=== PATIENT | female | born 1985 ===

== ENCOUNTER 2017-03-15 02:00 | Emergency (ER) | payer SELFPAY ==
[2017-03-15 02:09] VITALS: BP 127/90; PULSE 62; RESP 17; TEMP 98.2; O2SAT 100
--- NOTE | 2017-03-15 02:21 | ED PDOC ---
Arrival/HPI - General Chief Complaint: Abdominal Pain Time Seen by Provider: 03/15/17 02:04 Historian: Patient, Spouse - History of Present Illness Narrative History of Present Illness (Text): 03/15/17 02:19 Floridalma Leroy is a 31 year old female, with no significant past medical history, who presents to the emergency department accompanied by spouse complaining of abdominal pain. 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 Patient states she took Pepto-Bismol and diarrhea resolved but notes she woke up with worsening RUQ pain and nausea prior to arrival. Patient denies any fevers, chills, chest pain, shortness of breath, back pain, neck pain, headache, dizziness, or any other complaint. Time/Duration: < week (yesterday) Symptom Onset: Gradual Symptom Course: Unchanged Activities at Onset: Light Context: Home Past Medical History - Provider Review Nursing Documentation Reviewed: Yes - Psychiatric Hx Substance Use: No Family/Social History - Physician Review Nursing Documentation Reviewed: Yes Family/Social History: Unknown Family HX Smoking Status: Never Smoked Hx Alcohol Use: No Hx Substance Use: No Allergies/Home Meds Allergies/Adverse Reactions: Allergies No Known Allergies Allergy (Verified 03/15/17 02:10) Home Medications: Home Meds Medication Instructions Recorded Confirmed No Known Home Med 03/15/17 03/15/17 Review of Systems - Physician Review All systems were reviewed & negative as marked: Yes - Review of Systems Constitutional: Normal. absent: Fevers Eyes: Normal ENT: Normal Respiratory: Normal. absent: SOB, Cough Cardiovascular: Normal. absent: Chest Pain Gastrointestinal: Abdominal Pain, Diarrhea, Nausea Genitourinary Female: Normal. absent: Dysuria, Frequency, Hematuria, Urine Output Changes Musculoskeletal: Normal. absent: Back Pain, Neck Pain Skin: Normal. absent: Rash Neurological: Normal. absent: Headache, Dizziness Endocrine: Normal Hemo/Lymphatic: Normal Psychiatric: Normal Physical Exam Vital Signs Reviewed: Yes Vital Signs Temp Pulse Resp BP Pulse Ox 03/15/17 02:08 98.2 F 62 17 127/90 100 Temperature: Afebrile Blood Pressure: Normal Pulse: Regular Respiratory Rate: Normal Appearance: Positive for: Well-Appearing, Non-Toxic, Comfortable Pain Distress: None Mental Status: Positive for: Alert and Oriented X 3 - Systems Exam Head: Present: Atraumatic, Normocephalic Pupils: Present: PERRL Extroacular Muscles: Present: EOMI Conjunctiva: Present: Normal Mouth: Present: Moist Mucous Membranes Neck: Present: Normal Range of Motion Respiratory/Chest: Present: Clear to Auscultation, Good Air Exchange. No: Respiratory Distress, Accessory Muscle Use Cardiovascular: Present: Regular Rate and Rhythm, Normal S1, S2. No: Murmurs Abdomen: Present: Tenderness (RUQ tenderness), Normal Bowel Sounds. No: Distention, Peritoneal Signs Back: Present: Normal Inspection Upper Extremity: Present: Normal Inspection. No: Cyanosis, Edema Lower Extremity: Present: Normal Inspection. No: Edema Neurological: Present: GCS=15, CN II-XII Intact, Speech Normal Skin: Present: Warm, Dry, Normal Color. No: Rashes Psychiatric: Present: Alert, Oriented x 3, Normal Insight, Normal Concentration Medical Decision Making ED Course and Treatment: 03/15/17 02:20 Impression: 31 year old female complaining of RUQ/epigastric pain and nausea. Plan: -- CT Abdomen and Pelvis -- Labs, lipase -- UA -- IV fluids -- Zofran -- Toradol -- Reassess and disposition Progress Notes: 03/15/17 05:31 Reviewed radiology, CT Abdomen and Pelvis shows: LOWER THORAX: No infiltrate seen in the lung bases. ABDOMEN: LIVER: No acute abnormality of the liver identified. GALLBLADDER AND BILE DUCTS: Gallstones. Multiple stones are seen in the gallbladder neck. The gallbladder is mildly dilated. No evidence of significant pericholecystic fluid or inflammation. No evidence of significant biliary ductal dilatation. PANCREAS: No CT evidence of acute pancreatitis. SPLEEN: No acute abnormality of the spleen identified. ADRENALS: No acute abnormality of the adrenal glands identified. KIDNEYS AND URETERS: No acute abnormality of the kidneys identified. No renal stones, hydronephrosis, or hydroureter seen. STOMACH AND BOWEL: No acute abnormality of the stomach, small bowel or colon identified. No evidence of bowel obstruction. APPENDIX: Normal appendix is probably seen, image 42/series 601. No significant pericecal inflammatory changes are noted to suggest appendicitis. Recommend clinical correlation. PELVIS: BLADDER: No acute abnormality of the bladder identified. REPRODUCTIVE: No acute abnormality of the reproductive organs is seen. ABDOMEN and PELVIS: INTRAPERITONEAL SPACE: Tiny amount of fluid in the right anterior pelvis, most likely physiologic in nature. No evidence of free air. BONES/JOINTS: No acute fractures or other acute bony abnormality noted. SOFT TISSUES: No acute abnormality of the visualized soft tissues is seen. VASCULATURE: No evidence of abdominal aortic aneurysm. No evidence of periaortic hemorrhage. LYMPH NODES: No evidence of diffuse lymphadenopathy. IMPRESSION: - Cholelithiasis. There are multiple stones in the gallbladder neck and there is mild gallbladder dilatation. No CT evidence of acute cholecystitis. Recommend clinical correlation, and followup right upper quadrant ultrasound as indicated. - See above for remaining findings. 03/15/17 05:58 On re-evaluation, patient feels better and is in no acute distress. I have discussed the results and plan with the patient, who expresses understanding. Patient in agreement with plan to be discharged home. Patient is stable for discharge. Patient was instructed to follow up with physician or return if symptoms worsen or new concerning symptoms arise. - Lab Interpretations Microbiology Results: Microbiology Results 03/15/17 08:07 Urine,Clean Catch Urine Culture - Final No Growth (<1,000 CFU/ML) Lab Results: 03/15/17 02:30 03/15/17 02:30 Lab Results 03/15/17 02:30: Sodium 138, Potassium 4.0, Chloride 104, Carbon Dioxide 25, Anion Gap 13, BUN 6 L, Creatinine 0.9, Est GFR ( Amer) > 60, Est GFR (Non -Af Amer) > 60, Random Glucose 85, Calcium 9.7, Total Bilirubin 0.3, AST 26, ALT 40, Alkaline Phosphatase 40, Total Protein 7.2, Albumin 4.2, Globulin 3.1, Albumin/Globulin Ratio 1.4, Lipase 159 03/15/17 02:30: WBC 8.3, RBC 4.11, Hgb 11.9 L, Hct 36.7, MCV 89.3, MCH 29.0, MCHC 32.4, RDW 13.1, Plt Count 346, MPV 9.9, Gran % 48.8 L, Lymph % (Auto) 36.8 H, [place] % (Auto) 7.0 H, Eos % (Auto) 6.2 H, Baso % (Auto) 1.2, Gran # 4.03, Lymph # (Auto) 3.0, [place] # (Auto) 0.6, Eos # (Auto) 0.5, Baso # (Auto) 0.10 03/15/17 02:18: Urine Color Yellow, Urine Appearance Clear, Urine pH 7.0, Ur Specific [place] 1.010, Urine Protein Negative, Urine Glucose (UA) Negative, Urine Ketones Negative, Urine Blood Negative, Urine Nitrate Negative, Urine Bilirubin Negative, Urine Urobilinogen 0.2, Ur Leukocyte Esterase Small H, Urine RBC 0 - 2, Urine WBC 1 - 3, Ur Epithelial Cells 1 - 3 I have reviewed the lab results: Yes - RAD Interpretation Radiology Orders: 03/15/17 03:11 ABD & PELVIS W/O PO OR IV CONT [CT] Stat Special Warfare Operator: Radiologist - Medication Orders Current Medication Orders: Discontinued Medications Sodium Chloride (Sodium Chloride 0.9%) 1,000 mls @ 80 mls/hr IV .[id number] LUISA Last Admin: 03/15/17 02:37 Dose: 80 mls/hr eMAR Start Stop Document 03/15/17 02:37 AD (Rec: 03/15/17 02:38 AD [id number]) Intravenous Solution Start Date 03/15/17 Start Time 02:38 Ketorolac Tromethamine (Toradol) 30 mg IVP ONCE ONE Stop: 03/15/17 02:22 Last Admin: 03/15/17 02:37 Dose: 30 mg MAR Pain Assessment Document 03/15/17 02:37 AD (Rec: 03/15/17 02:37 AD [id number]) Pain Reassessment Is this a pain reassessment? No Presence of Pain Presence of Pain Yes Pain Scale Used Pain Scale Used Numeric Location Upper or Lower Upper Pain Location Body Site Abdomen Description Intensity of Pain at present 10 Pain Behavior Facial Grimacing IVP Administration Document 03/15/17 02:37 AD (Rec: 03/15/17 02:37 AD [id number]) Charges for Administration # of IVP Administrations 1 Ondansetron HCl (Zofran Inj) 4 mg IVP STAT STA Stop: 03/15/17 02:22 Last Admin: 03/15/17 02:37 Dose: 4 mg IVP Administration Document 03/15/17 02:37 AD (Rec: 03/15/17 02:37 AD [id number]) Charges for Administration # of IVP Administrations 1 - Scribe Statement The provider has reviewed the documentation as recorded by the Christinaibdolly Cortez Provider Scribe Attestation: All medical record entries made by the Scribe were at my direction and personally dictated by me. I have reviewed the chart and agree that the record accurately reflects my personal performance of the history, physical exam, medical decision making, and the department course for this patient. I have also personally directed, reviewed, and agree with the discharge instructions and disposition. Disposition/Present on Arrival - Present on Arrival Any Indicators Present on Arrival: No History of DVT/PE: No History of Uncontrolled Diabetes: No Urinary Catheter: No History of Decub. Ulcer: No History Surgical Site Infection Following: None - Disposition Have Diagnosis and Disposition been Completed?: Yes Diagnosis: Cholelithiases Disposition: HOME/ ROUTINE Disposition Time: 05:58 Condition: GOOD Discharge Instructions (ExitCare): Gallstones (ED) Referrals: [facility] [place] [Outside] - Follow up with primary Forms: [employer] (Yoruba)
[2017-03-15] MEDS ORDERED: Sodium Chloride 0.9% 1,000 ML IV SCH (02:30)
[2017-03-15 02:45] LABS: BASO # 0.1 K/mm3 (0.0-2.0); BASO % 1.2 % (0.0-3.0); EOS # 0.5 (0.0-0.7); EOS % 6.2 % (1.5-5.0); GRAN # 4.03 (1.4-6.5); GRAN % 48.8 % (50.0-68.0); HEMOGLOBIN 11.9 g/dL (12.0-16.0); LYMPH % 36.8 % (22.0-35.0); MEAN CELL VOLUME 89.3 fl (80.0-105.0); MEAN CORPUSCULAR HGB CONC 32.4 g/dl (31.0-37.0); MEAN PLATELET VOLUME 9.9 fl (7.0-11.0); MONO # 0.6 (0.1-0.6); RBC 4.11 10^6/uL (3.5-6.1); RED CELL DISTRIBUTION WIDTH 13.1 % (11.5-14.5); WHITE BLOOD COUNT 8.3 10^3/ul (4.5-11.0)
[2017-03-15 02:59] LABS: URINE BILIRUBIN NEGATIVE (NEGATIVE); URINE BLOOD NEGATIVE (NEGATIVE); URINE GLUCOSE (UA) NEGATIVE (NEGATIVE); URINE LEUKOCYTE ESTERASE SMALL Leu/uL (NEGATIVE); URINE NITRATE NEGATIVE (NEGATIVE); URINE PROTEIN NEGATIVE mg/dL (<30 mg/dL); URINE UROBILINOGEN 0.2 E.U./dL (<1 E.U./dL)
[2017-03-15 03:07] LABS: URINE APPEARANCE CLEAR (CLEAR); URINE COLOR YELLOW (YELLOW)
[2017-03-15 03:12] LABS: BLOOD UREA NITROGEN 6 mg/dL (7-21); CALCIUM 9.7 mg/dL (8.4-10.5); GFR AFRICAN-AMERICAN > 60; GFR NON-AFRICAN AMERICAN > 60
[2017-03-15 03:13] LABS: ALB/GLOB RATIO 1.4 (1.1-1.8); ALBUMIN 4.2 g/dL (3.0-4.8); ALT/SGPT 40 U/L (7-56); AST/SGOT 26 U/L (14-36); LIPASE 159 U/L (23-300)
[2017-03-15 03:18] LABS: URINE RBC 0 - 2 /hpf (0-2)
--- NOTE | 2017-03-15 05:30 | CT ---
EXAM: CT Abdomen and Pelvis Without Intravenous Contrast EXAM DATE/TIME: 03/15/2017 3:11 AM CLINICAL HISTORY: 31 years old, female; Pain; Abdominal pain; Flank; Right; Additional info: Rt flank pain TECHNIQUE: Axial computed tomography images of the abdomen and pelvis without intravenous contrast. All CT scans at this facility use one or more dose reduction techniques, viz.: automated exposure control; ma/kV adjustment per patient size (including targeted exams where dose is matched to indication; i.e. head); or iterative reconstruction technique. Coronal and sagittal reformatted images were created and reviewed. COMPARISON: No relevant prior studies available. FINDINGS: LOWER THORAX: No infiltrate seen in the lung bases. ABDOMEN: LIVER: No acute abnormality of the liver identified. GALLBLADDER AND BILE DUCTS: Gallstones. Multiple stones are seen in the gallbladder neck. The gallbladder is mildly dilated. No evidence of significant pericholecystic fluid or inflammation. No evidence of significant biliary ductal dilatation. PANCREAS: No CT evidence of acute pancreatitis. SPLEEN: No acute abnormality of the spleen identified. ADRENALS: No acute abnormality of the adrenal glands identified. KIDNEYS AND URETERS: No acute abnormality of the kidneys identified. No renal stones, hydronephrosis, or hydroureter seen. STOMACH AND BOWEL: No acute abnormality of the stomach, small bowel or colon identified. No evidence of bowel obstruction. APPENDIX: Normal appendix is probably seen, image 42/series 601. No significant pericecal inflammatory changes are noted to suggest appendicitis. Recommend clinical correlation. PELVIS: BLADDER: No acute abnormality of the bladder identified. REPRODUCTIVE: No acute abnormality of the reproductive organs is seen. ABDOMEN and PELVIS: INTRAPERITONEAL SPACE: Tiny amount of fluid in the right anterior pelvis, most likely physiologic in nature. No evidence of free air. BONES/JOINTS: No acute fractures or other acute bony abnormality noted. SOFT TISSUES: No acute abnormality of the visualized soft tissues is seen. VASCULATURE: No evidence of abdominal aortic aneurysm. No evidence of periaortic hemorrhage. LYMPH NODES: No evidence of diffuse lymphadenopathy. IMPRESSION: - Cholelithiasis. There are multiple stones in the gallbladder neck and there is mild gallbladder dilatation. No CT evidence of acute cholecystitis. Recommend clinical correlation, and followup right upper quadrant ultrasound as indicated. - See above for remaining findings.
== END 2017-03-15 06:01 | disposition home or self-care (01) ==
LOC: ED 02:00
DX: K80.20 Calculus of gallbladder without cholecystitis without obstruction (principal)
CPT/HCPCS: 74176; 80053; 81001; 83690; 85025; 87086; 96374; 96375; 99283; J1885; J2405; J7040

== ENCOUNTER 2017-09-04 09:32 | Emergency (ER) | payer OTHER ==
[2017-09-04 09:57] VITALS: TEMP 99.1; O2SAT 100
[2017-09-04 10:09] LABS: PH,URINE 6.5 (4.7-8.0); URINE BILIRUBIN NEGATIVE (NEGATIVE); URINE BLOOD NEGATIVE (NEGATIVE); URINE GLUCOSE (UA) NEGATIVE (NEGATIVE); URINE LEUKOCYTE ESTERASE MODERATE Leu/uL (NEGATIVE); URINE PROTEIN NEGATIVE mg/dL (<30 mg/dL); URINE UROBILINOGEN 0.2 E.U./dL (<1 E.U./dL)
--- NOTE | 2017-09-04 10:09 | ED PDOC ---
Arrival/HPI - General Chief Complaint: Abdominal Pain Time Seen by Provider: 09/04/17 09:47 Historian: Patient - History of Present Illness Narrative History of Present Illness (Text): 09/04/17 10:06 31 yo female come in for evaluation of suprapubic pain gradually developed for past 4 days. Pt reports, pain is intermittent, non-radiating. localized. Otherwise, pt denies fever, c hills, headache, dizziness, sore throat, CP, SOB, dyspnea, N/V/D, UTI sx, back pain, hematuria, vaginal irritation or discharges. Ambulate to Ed for evaluation, not in any apparent distress. LNMP 06/21/17 Past Medical History - Provider Review Nursing Documentation Reviewed: Yes - Travel History Have you recently traveled outside [place] w/in the past 3 mons?: No - Past History Past History: No Previous - Infectious Disease Hx of Infectious Diseases: None - Tetanus Immunization Tetanus Immunization: Unknown - Reproductive Menopause: No - Cardiac Hx Cardiac Disorders: No - Pulmonary Hx Respiratory Disorders: No - Psychiatric Hx Substance Use: No - Anesthesia Hx Anesthesia: No Family/Social History - Physician Review Nursing Documentation Reviewed: Yes Family/Social History: No Known Family HX Smoking Status: Never Smoked Hx Alcohol Use: No Hx Substance Use: No Allergies/Home Meds Allergies/Adverse Reactions: Allergies No Known Allergies Allergy (Verified 03/15/17 02:10) Review of Systems - Review of Systems Constitutional: Normal Eyes: Normal ENT: Normal Respiratory: Normal Cardiovascular: Normal Gastrointestinal: Abdominal Pain. absent: Diarrhea, Nausea, Vomiting, Appetite Changes Genitourinary Female: absent: Dysuria, Frequency, Hematuria, Urine Output Changes Musculoskeletal: Normal Skin: Normal. absent: Rash Neurological: Normal Endocrine: Normal Hemo/Lymphatic: Normal Psychiatric: Normal Physical Exam Vital Signs Reviewed: Yes Vital Signs Temp Pulse Resp BP Pulse Ox 09/04/17 09:53 99.1 F 75 16 100/63 100 Temperature: Afebrile Blood Pressure: Normal Pulse: Regular Respiratory Rate: Normal Appearance: Positive for: Well-Appearing, Non-Toxic, Comfortable Pain Distress: Mild Mental Status: Positive for: Alert and Oriented X 3 - Systems Exam Head: Present: Normocephalic Conjunctiva: Present: Normal Pharnyx: No: ERYTHEMA, EXUDATE, TONSILS ENLARGED Nose (Internal): Present: Moist Neck: Present: Trachea Midline. No: JVD Respiratory/Chest: Present: Clear to Auscultation. No: Respiratory Distress, Wheezes, Decreased Breath Sounds Cardiovascular: Present: Regular Rate and Rhythm, Normal S1, S2. No: Murmurs Abdomen: Present: Tenderness (mild suprapubic), Normal Bowel Sounds. No: Distention, Peritoneal Signs, Rebound, Guarding Back: No: CVA Tenderness Upper Extremity: Present: Normal ROM. No: Deformity Lower Extremity: Present: Normal ROM. No: CALF TENDERNESS, Swelling Neurological: Present: Speech Normal Skin: Present: Warm, Normal Color. No: Rashes Psychiatric: Present: Alert, Oriented x 3 Medical Decision Making ED Course and Treatment: 09/04/17 11:18 Initially, after my examination, Was notified by RN POC (+) Blood work , OB US ordered. Pt admits, LNMP 06/21/17, , miscarriage 1. NO hx of ectopic . Pt was OBS in ED for 21 hours and remained stable. On re-evaluation, pt is afebrile, hemodynamicaly stable. Non-toxic, tolerate PO well in ED. ENT: no acute findings neck: Supple, (-) JVD Lungs: CTA B/L, BS equal B/L. Abd: benign, (-) guarding, (-) rebound, (-) RLQ tenderness back: CVA tenderness CBC- no acute findings. UA results (+) WBC, leuko, (-) nitrate, (-) RBC OB US result review (+) single live IUP, (+) GS, yolk pole (+) HR @168/min, EGA 7w6d beta quat [id number] c/w US results of weeks. Blood type O positive Pt has clinical findings c/w , UTI. result review and discussed with pt. ref. to f/u with PMD, OB in 2-3 days for re-eavl. return to Ed if any worsening or new changes. - Lab Interpretations Lab Results: 09/04/17 11:10 Lab Results 09/04/17 11:10: Blood Type O POSITIVE, Antibody Screen Negative, BBK History Checked No verified bt 09/04/17 11:10: Beta HCG, Quant [id number] H 09/04/17 11:10: WBC 9.5, RBC 4.25, Hgb 12.2, Hct 36.2, MCV 85.2 D, MCH 28.7, MCHC 33.7, RDW 14.2, Plt Count 286, MPV 9.3, Gran % 69.5 H, Lymph % (Auto) 22.4 , [place] % (Auto) 6.0, Eos % (Auto) 1.5, Baso % (Auto) 0.6, Gran # 6.58 H, Lymph # (Auto) 2.1, [place] # (Auto) 0.6, Eos # (Auto) 0.1, Baso # (Auto) 0.06 09/04/17 10:00: Urine Color Yellow, Urine Appearance Clear, Urine pH 6.5, Ur Specific [place] 1.020, Urine Protein Negative, Urine Glucose (UA) Negative, Urine Ketones Negative, Urine Blood Negative, Urine Nitrate Negative, Urine Bilirubin Negative, Urine Urobilinogen 0.2, Ur Leukocyte Esterase Moderate H, Urine RBC 0 - 2, Urine WBC 10 - 15, Ur Epithelial Cells 4 - 5, Urine Bacteria Many I have reviewed the lab results: Yes - RAD Interpretation Radiology Orders: 09/04/17 10:11 TRANSVAGINAL [US] Stat Creator : Antoine Bonilla MD Dictator : Antoine Bonilla MD Assembler Fluorescent Lights : Instructional Paraprofessional : Antoine Bonilla MD Approver2 : Report Date : 09/04/2017 12:25:40 My Comment : Date of service: 09/04/2017 HISTORY: lower abdominal pain COMPARISON: None available. TECHNIQUE: Transabdominal and transvaginal FINDINGS: UTERUS: Measures 11.6 x 9.0 x 8.1 cm. No uterine mass. There is an intrauterine gestational sac. The mean sac diameter is 2.9 cm equivalent to 7 weeks 6 days gestational age. A pole is identified. The crown-rump length is 19 mm equivalent to 8 weeks 3 days. The average ultrasound age is 8 weeks 1 day. The ERENDIRA by ultrasound is 04/15/2018. The heart rate is 168 beats per minute. There is no subchorionic hemorrhage. A 3 mm yolk sac is visualized. ENDOMETRIUM: See above CERVIX: No cervical abnormality identified. RIGHT OVARY: Not visualize LEFT OVARY: Measures 3.1 x 4.1 x 2.3 cm. No solid mass. Normal flow. FREE FLUID: No significant free fluid noted. OTHER FINDINGS: None. IMPRESSION: Single live intrauterine gestation of approximately 8 weeks 1 day gestational age. heart rate 168 beats per minute. ERENDIRA 04/15/2018. No subchorionic hemorrhage. Otherwise unremarkable. - Medication Orders Current Medication Orders: Discontinued Medications Nitrofurantoin Macrocrystals (Macrobid) 100 mg PO STAT STA PRN Reason: Protocol Stop: 09/04/17 11:17 Last Admin: 09/04/17 11:40 Dose: 100 mg Disposition/Present on Arrival - Present on Arrival Any Indicators Present on Arrival: No History of DVT/PE: No History of Uncontrolled Diabetes: No Urinary Catheter: No History of Decub. Ulcer: No History Surgical Site Infection Following: None - Disposition Have Diagnosis and Disposition been Completed?: Yes Diagnosis: UTI in Disposition: HOME/ ROUTINE Disposition Time: 11:15 Patient Plan: Discharge Patient Problems: Current Active Problems Problem Status Onset UTI in Acute Condition: STABLE Discharge Instructions (ExitCare): Urinary Tract Infection, Adult (DC), - The Second Month Print Language: BELARUSIAN Additional Instructions: Encourage fluids Take medication as prescribed Follow up with OB in 2-3 days for re-evaluation. return to Ed if any worsening or new changes. Prescriptions: Nitrofurantoin Macrocrystals [Macrobid] 100 mg PO BID #14 cap Multivit/Folic Acid/I [ Plus] 1 tab PO DAILY #30 tab [facility] [[facility] - Follow up with primary Forms: [employer] (Ethiopian)
[2017-09-04 10:12] LABS: URINE APPEARANCE CLEAR (CLEAR); URINE COLOR YELLOW (YELLOW)
[2017-09-04 11:01] LABS: URINE BACTERIA MANY (NEG); URINE RBC 0 - 2 /hpf (0-2)
[2017-09-04 11:24] LABS: BASO # 0.06 K/mm3 (0.0-2.0); BASO % 0.6 % (0.0-3.0); EOS # 0.1 (0.0-0.7); EOS % 1.5 % (1.5-5.0); GRAN # 6.58 (1.4-6.5); GRAN % 69.5 % (50.0-68.0); HEMOGLOBIN 12.2 g/dL (12.0-16.0); LYMPH # 2.1 (1.2-3.4); LYMPH % 22.4 % (22.0-35.0); MEAN CELL VOLUME 85.2 fl (80.0-105.0); MEAN CORPUSCULAR HEMOGLOBIN 28.7 pg (25.0-35.0); MEAN CORPUSCULAR HGB CONC 33.7 g/dl (31.0-37.0); MEAN PLATELET VOLUME 9.3 fl (7.0-11.0); MONO # 0.6 (0.1-0.6); RBC 4.25 10^6/uL (3.5-6.1); RED CELL DISTRIBUTION WIDTH 14.2 % (11.5-14.5); WHITE BLOOD COUNT 9.5 10^3/ul (4.5-11.0)
--- NOTE | 2017-09-04 12:27 | US ---
Date of service: 09/04/2017 HISTORY: lower abdominal pain COMPARISON: None available. TECHNIQUE: Transabdominal and transvaginal FINDINGS: UTERUS: Measures 11.6 x 9.0 x 8.1 cm. No uterine mass. There is an intrauterine gestational sac. The mean sac diameter is 2.9 cm equivalent to 7 weeks 6 days gestational age. A pole is identified. The crown-rump length is 19 mm equivalent to 8 weeks 3 days. The average ultrasound age is 8 weeks 1 day. The ERENDIRA by ultrasound is 04/15/2018. The heart rate is 168 beats per minute. There is no subchorionic hemorrhage. A 3 mm yolk sac is visualized. ENDOMETRIUM: See above CERVIX: No cervical abnormality identified. RIGHT OVARY: Not visualize LEFT OVARY: Measures 3.1 x 4.1 x 2.3 cm. No solid mass. Normal flow. FREE FLUID: No significant free fluid noted. OTHER FINDINGS: None. IMPRESSION: Single live intrauterine gestation of approximately 8 weeks 1 day gestational age. heart rate 168 beats per minute. ERENDIRA 04/15/2018. No subchorionic hemorrhage. Otherwise unremarkable.
[2017-09-04 13:19] VITALS: BP 100/66; PULSE 52; RESP 18
== END 2017-09-04 13:16 | disposition home or self-care (01) ==
LOC: ED 09:32
DX: O23.41 Unspecified infection of urinary tract in pregnancy, first trimester (principal); Z3A.08 8 weeks gestation of pregnancy

== ENCOUNTER 2017-09-17 09:37 | Emergency (ER) | payer OTHER ==
[2017-09-17 09:57] VITALS: BP 117/88; RESP 18
--- NOTE | 2017-09-17 10:46 | ED PDOC ---
Arrival/HPI <Boris Pelletier - Last Filed: 09/17/17 11:43> - General Historian: Patient - History of Present Illness Time/Duration: < week (4 days) Symptom Onset: Sudden Symptom Course: Intermittent Activities at Onset: Rest <Manuel Ortega - Last Filed: 09/17/17 11:53> - General Chief Complaint: GI Problem Time Seen by Provider: 09/17/17 09:46 - History of Present Illness Narrative History of Present Illness (Text): 09/17/17 10:43 Patient is a 31 year old female that is currently 10 weeks complaining of fevers, cough and abdominal pain for 4 days. She has been experiencing a non productive cough and left sided abdominal pain together for the past four days. The pain is described as intermittent discomfort and bloating. Last night she felt bloated and had one episode of diarrhea. She also has a headache on the right side of her head. She has not taken her temperature but took Tylenol at home for subjective fevers. Patient was recently seen in ED on 09/04/17 and was found to be with UTI. She was treated with macrobid for 7 days, which she completed. Denies nausea, vomiting, chest pain, shortness of breath, dysuria , increased urinary frequency, vaginal discharge or vaginal pruritus. (Manuel Ortega) Past Medical History - Provider Review Nursing Documentation Reviewed: Yes - Past History Past History: No Previous - Infectious Disease Hx of Infectious Diseases: None - Tetanus Immunization Tetanus Immunization: Unknown - Reproductive Menopause: No - Cardiac Hx Cardiac Disorders: No - Pulmonary Hx Respiratory Disorders: No - HEENT Hx HEENT Disorder: No - Renal Hx Renal Disorder: No - Psychiatric Hx Psychophysiologic Disorder: No Hx Substance Use: No - Anesthesia Hx Anesthesia: No <Manuel Ortega - Last Filed: 09/17/17 11:53> Family/Social History - Physician Review Nursing Documentation Reviewed: Yes Family/Social History: Unknown Family HX Smoking Status: Never Smoked Hx Alcohol Use: No Hx Substance Use: No <Manuel Ortega - Last Filed: 09/17/17 11:53> Allergies/Home Meds <Boris Pelletier - Last Filed: 09/17/17 11:43> <Manuel Ortega - Last Filed: 09/17/17 11:53> Allergies/Adverse Reactions: Allergies No Known Allergies Allergy (Verified 09/17/17 09:56) Review of Systems - Physician Review All systems were reviewed & negative as marked: Yes - Review of Systems Constitutional: absent: Fatigue, Fevers Eyes: Normal ENT: Normal, Rhinorrhea, Sinus Congestion. absent: Sore Throat Respiratory: Cough. absent: SOB, Sputum, Wheezing Cardiovascular: Normal. absent: Chest Pain, Palpitations, Edema Gastrointestinal: Abdominal Pain (left sided), Diarrhea. absent: Constipation, Nausea, Vomiting, Appetite Changes Genitourinary Female: Normal. absent: Dysuria, Frequency, Hematuria, Vaginal Bleeding, Vaginal Discharge Skin: Normal Neurological: Headache. absent: Dizziness, Focal Weakness, Disequilibrium Endocrine: Normal. absent: Diaphoresis Hemo/Lymphatic: Normal Psychiatric: Normal <Manuel Ortega - Last Filed: 09/17/17 11:53> Physical Exam Vital Signs Reviewed: Yes Temperature: Afebrile Blood Pressure: Normal Pulse: Regular Respiratory Rate: Normal Appearance: Positive for: Well-Appearing, Non-Toxic, Comfortable Pain Distress: None Mental Status: Positive for: Alert and Oriented X 3 - Systems Exam Head: Present: Atraumatic, Normocephalic Pupils: Present: PERRL Extroacular Muscles: Present: EOMI Conjunctiva: Present: Normal Ears: Present: Normal, NORMAL TM, Normal Canal. No: Erythema, TM Bulging, Fluid , TM Perf Mouth: Present: Moist Mucous Membranes, Normal Lips, Normal Tounge, Normal Teeth Pharnyx: Present: Normal. No: ERYTHEMA, EXUDATE, TONSILS ENLARGED, Peritonsilar Swelling, Uvular Deviation, Muffled/Hoarse Voice, Strider, Soft Palate/Uvular Edema Nose (External): Present: Atraumatic Nose (Internal): Present: Normal Inspection, No Active Bleeding, Moist. No: Engorged, Edematous, Boggy, Clear Mucous, Rhinorrhea, Purulent Mucous, Septal Deviation, Septal Hematoma, Epistaxis Neck: Present: Normal Range of Motion, Paraspinal Tenderness (right side), Trachea Midline. No: Meningeal Signs, MIDLINE TENDERNESS, JVD, Lymphadenopathy Respiratory/Chest: Present: Clear to Auscultation, Good Air Exchange. No: Respiratory Distress, Accessory Muscle Use, Wheezes, Rales, Rhonchi Cardiovascular: Present: Regular Rate and Rhythm, Normal S1, S2. No: Murmurs Abdomen: Present: Tenderness (LLQ only). No: Distention, Peritoneal Signs Upper Extremity: Present: Normal Inspection, NORMAL PULSES. No: Cyanosis, Edema Lower Extremity: Present: Normal Inspection, NORMAL PULSES. No: Edema, CALF TENDERNESS Neurological: Present: GCS=15, Speech Normal, Motor Func Grossly Intact Skin: Present: Warm, Dry, Normal Color. No: Rashes Psychiatric: Present: Alert, Oriented x 3, Normal Insight, Normal Concentration <Manuel Ortega - Last Filed: 09/17/17 11:53> Vital Signs Temp Pulse Resp BP Pulse Ox 09/17/17 09:51 99.4 F 88 18 117/88 98 Medical Decision Making <Boris Pelletier - Last Filed: 09/17/17 11:43> Re-evaluation Time: 11:17 Reassessment Condition: Re-examined, Improving,but remains with symptoms - Lab Interpretations I have reviewed the lab results: Yes <Manuel Ortega - Last Filed: 09/17/17 11:53> ED Course and Treatment: 09/17/17 11:10 31 year old female presents to the Emergency department complaining of fevers, cough and abdominal pain for 4 days. In agreement with resident note, which includes further HPI details. Patient was seen and evaluated with resident, came up with plan and treatment together. (Boris Pelletier) 09/17/17 11:03 Physical exam normal other than mild discomfort in stomach. Bedside US showed fetus with HR of 162bpm. Recent urine culture on 09/04/17 was negative UA, Pepcid and Tylenol 09/17/17 11:17 Patient states that the pain is improving. Still no nausea. 09/17/17 11:40 Patient's UA negative. Will discharge home and instructions to follow up with her OBGYN. Patient has initial visit scheduled on 09/[address] Bradshaw in [place]. Will prescribe Tylenol and Pepcid. (Manuel Ortega) - Lab Interpretations Lab Results: Lab Results 09/17/17 10:47: Urine Color Yellow, Urine Appearance Clear, Urine pH 6.5, Ur Specific [place] 1.015, Urine Protein Negative, Urine Glucose (UA) Negative, Urine Ketones Negative, Urine Blood Negative, Urine Nitrate Negative, Urine Bilirubin Negative, Urine Urobilinogen 0.2, Ur Leukocyte Esterase Negative - Medication Orders Current Medication Orders: Discontinued Medications Acetaminophen (Tylenol 325mg Tab) 650 mg PO STAT STA Stop: 09/17/17 10:28 Last Admin: 09/17/17 10:38 Dose: 650 mg MAR Pain/Vitals Document 09/17/17 10:38 [email or web address] (Rec: 09/17/17 10:38 [email or web address] [id number]) Pain Reassessment Is This A Pain ReAssessment? No Sleep Is patient sleeping during reassessment? No Pain Scale Used Pain Scale Used Numeric Location Pain Location Body Site Generalized Description Constant Intensity 5 Scale Used Numeric Pain Behavior Facial Grimacing Aggravating Factors Changing Position Alleviating Factors Medication Famotidine (Pepcid) 20 mg PO STAT STA Stop: 09/17/17 10:28 Last Admin: 09/17/17 10:39 Dose: 20 mg - PA / BULL DRIVER / Resident Statement MD/DO has reviewed & agrees with the documentation as recorded. MD/DO has examined the patient and agrees with the treatment plan. - Scribe Statement The provider has reviewed the documentation as recorded by the Scribe <Boris Pelletier - Last Filed: 09/17/17 11:43> <Manuel Ortega - Last Filed: 09/17/17 11:53> - Scribe Statement Jefe Armstrong. All medical record entries made by the Scribe were at my direction and personally dictated by me. I have reviewed the chart and agree that the record accurately reflects my personal performance of the history, physical exam, medical decision making, and the department course for this patient. I have also personally directed, reviewed, and agree with the discharge instructions and disposition. (Boris Pelletier) Disposition/Present on Arrival <Boris Pelletier - Last Filed: 09/17/17 11:43> - Present on Arrival Any Indicators Present on Arrival: No History of DVT/PE: No History of Uncontrolled Diabetes: No Urinary Catheter: No History of Decub. Ulcer: No History Surgical Site Infection Following: None - Disposition Have Diagnosis and Disposition been Completed?: Yes Disposition Time: 11:30 Patient Plan: Discharge <Manuel Ortega - Last Filed: 09/17/17 11:53> - Disposition Diagnosis: Viral syndrome Disposition: HOME/ ROUTINE Patient Problems: Current Active Problems Problem Status Onset Viral syndrome Acute Condition: IMPROVED Print Language: OCCITAN Additional Instructions: ILEANA FOREMAN, thank you for letting us take care of you today. Your provider was Boris Pelletier DO and you were treated for Viral Syndrome. The emergency medical care you received today was directed at your acute symptoms. If you were prescribed any medication, please fill it and take as directed. It may take several days for your symptoms to resolve. Return to the Emergency Department if your symptoms worsen, do not improve, or if you have any other problems. Please contact your doctor or call one of the physicians/clinics you have been referred to that are listed on the Patient Visit Information form that is included in your discharge packet. Bring any paperwork you were given at discharge with you along with any medications you are taking to your follow up visit. Our treatment cannot replace ongoing medical care by a primary care provider outside of the emergency department. Thank you for allowing the [facility] team to be part of your care today. If you had an X-Ray or CT scan: A Radiologist will review the ED reading if any change in treatment is needed we will contact you. If you had a blood, urine, or wound culture: It will take several days for the results, if any change in treatment is needed we will contact you. If you had an STI test: It will take 48 hours for the results. Please call after 1 week if you have not heard back. Prescriptions: Acetaminophen [Tylenol 325mg tab] 650 mg PO Q4 #60 tab Famotidine [Pepcid] 20 mg PO DAILY #30 tab Referrals: [facility] [place] [Outside] - Follow up with primary Forms: [employer] (Croatian), WORK NOTE
[2017-09-17 10:52] LABS: PH,URINE 6.5 (4.7-8.0); URINE BILIRUBIN NEGATIVE (NEGATIVE); URINE BLOOD NEGATIVE (NEGATIVE); URINE GLUCOSE (UA) NEGATIVE (NEGATIVE); URINE LEUKOCYTE ESTERASE NEGATIVE Leu/uL (NEGATIVE); URINE PROTEIN NEGATIVE mg/dL (<30 mg/dL); URINE UROBILINOGEN 0.2 E.U./dL (<1 E.U./dL)
[2017-09-17 11:00] LABS: URINE APPEARANCE CLEAR (CLEAR); URINE COLOR YELLOW (YELLOW)
[2017-09-17 11:56] VITALS: PULSE 66; TEMP 98; O2SAT 95
== END 2017-09-17 11:55 | disposition home or self-care (01) ==
LOC: ED 09:37
DX: O26.891 Other specified pregnancy related conditions, first trimester (principal); B34.9 Viral infection, unspecified; Z3A.10 10 weeks gestation of pregnancy

== ENCOUNTER 2017-12-16 12:28 | Emergency (ER) | payer OTHER ==
[2017-12-16 12:34] VITALS: RESP 18; TEMP 98.7; O2SAT 100; BMI 18.4
[2017-12-16 14:27] VITALS: BP 101/66; PULSE 82
--- NOTE | 2017-12-16 14:57 | ED PDOC ---
Arrival/HPI - General Chief Complaint: Headache Time Seen by Provider: 12/16/17 13:14 Historian: Patient, Spouse - History of Present Illness Narrative History of Present Illness (Text): 12/16/17 14:54 Patient is a 32 yo female, 26 weeks by her history, presents to the Emergency Department with history of right sided headache and neck pain for past three days. Patient states pain was NOT sudden onsets or thunderclap. States pain is similar to headaches she has been having "on and off since I've been ". Patient's states she has had similar character headache intermittently for past several years. Denies fever. Denies trauma. Denies sore throat or nasal congestion. Denies ear ache. Report she has occasional right upper dental pain. Denies abdominal pain or vaginal bleeding. States that her to her knowledge has been uncomplicated. Past Medical History - Past History Past History: No Previous - Infectious Disease Hx of Infectious Diseases: None - Tetanus Immunization Tetanus Immunization: Unknown - Cardiac Hx Cardiac Disorders: No - Pulmonary Hx Respiratory Disorders: No - HEENT Hx HEENT Disorder: No - Renal Hx Renal Disorder: No - Psychiatric Hx Psychophysiologic Disorder: No Hx Substance Use: No - Surgical History Hx Section: Yes - Anesthesia Hx Anesthesia: No Family/Social History Family/Social History: Unknown Family HX Smoking Status: Never Smoked Hx Alcohol Use: No Hx Substance Use: No Allergies/Home Meds Allergies/Adverse Reactions: Allergies No Known Allergies Allergy (Verified 09/17/17 09:56) Review of Systems - Review of Systems Constitutional: absent: Fevers Eyes: absent: Vision Changes, Eye Pain ENT: absent: Rhinorrhea Respiratory: absent: SOB Cardiovascular: absent: Chest Pain, Edema, SAAB Gastrointestinal: absent: Abdominal Pain, Nausea, Vomiting Genitourinary Female: absent: Dysuria, Hematuria, Vaginal Bleeding Musculoskeletal: Neck Pain. absent: Back Pain Skin: absent: Rash Neurological: Headache. absent: Dizziness, Focal Weakness, Gait Changes, Speech Changes, Facial Droop, Disequilibrium, Seizure Endocrine: absent: Polyuria Hemo/Lymphatic: absent: Easy Bleeding Psychiatric: absent: Depression Physical Exam Vital Signs Reviewed: Yes Vital Signs Temp Pulse Resp BP Pulse Ox 12/16/17 14:27 98.7 F 82 18 101/66 100 12/16/17 12:34 98.7 F 88 18 99/55 L 100 Temperature: Afebrile Pulse: Regular Appearance: Positive for: Non-Toxic Pain Distress: Mild Mental Status: Positive for: Alert and Oriented X 3 - Systems Exam Head: Present: Atraumatic, Normocephalic Pupils: Present: PERRL Extroacular Muscles: Present: EOMI Conjunctiva: No: Injected Mouth: Present: Moist Mucous Membranes, Other (no gingival erythema or edema, there is cavity to right upper molar but no dental tenderness) Pharnyx: No: ERYTHEMA Nose (External): Present: Atraumatic Nose (Internal): Present: Normal Inspection, No Active Bleeding Neck: Present: Paraspinal Tenderness (right sided muscle spasm, no deformity or stepoff), Trachea Midline Respiratory/Chest: Present: Clear to Auscultation. No: Respiratory Distress, Tender to Palpation Cardiovascular: Present: Regular Rate and Rhythm. No: Murmurs Abdomen: Present: Normal Bowel Sounds. No: Tenderness, Distention, Peritoneal Signs Rectal: No: Gross Blood Back: No: CVA Tenderness Upper Extremity: No: Cyanosis, Edema Lower Extremity: Present: NORMAL PULSES, Neurovascularly Intact. No: Edema, CALF TENDERNESS Neurological: Present: CN II-XII Intact, Speech Normal, Motor Func Grossly Intact, Normal Sensory Function, Normal Cerebellar Funct, Norm Deep Tendon Reflexes, Gait Normal, Memory Normal, Normal 2Pt Descrimination Skin: Present: Warm Psychiatric: Present: Alert, Normal Insight, Normal Concentration Medical Decision Making ED Course and Treatment: 12/16/17 15:01 Patient is noted to have NO fever, NO hypertension. Denies trauma or fever. She is well appearing. present and assists with history. There is palpable right sided neck spasm which I feel is contributing to pain and headache. Headache is not acute or sudden onset. Headache is worse when she turns her neck and radiates from neck by history and exam. No facial swelling noted. No pain with eye movements. Visual acuity and visual mae intact.. Patient with no facial droop. confirms she has had intermittent headaches for several years. I feel currently headache is related to cervical strain as she has reproducible muscle spasm on exam and is noted to have pain reproduced with movement. On re- exam she is ambulatory, comfortable. Advised tylenol for pain given . Stressed need for neurology follow-up or return to ER for any persistent headache or symptoms. No abdominal pain on discharge. - Medication Orders Current Medication Orders: Discontinued Medications Acetaminophen (Tylenol 325mg Tab) 325 mg PO STAT STA Stop: 12/16/17 13:36 Last Admin: 12/16/17 14:19 Dose: 325 mg MAR Pain/Vitals Document 12/16/17 14:19 MR (Rec: 12/16/17 14:20 MR [id number]) Pain Reassessment Is This A Pain ReAssessment? Yes Sleep Is patient sleeping during reassessment? No Presence of Pain Presence of Pain Yes Pain Scale Used Protocol: PSCALES Pain Scale Used Numeric Location Left, Right or Bilateral Right Pain Location Body Nail Professional Description Constant Intensity 6 Scale Used Numeric Aggravating Factors None Alleviating Factors Medication Disposition/Present on Arrival - Present on Arrival Any Indicators Present on Arrival: No History of DVT/PE: No History of Uncontrolled Diabetes: No Urinary Catheter: No History of Decub. Ulcer: No History Surgical Site Infection Following: None - Disposition Have Diagnosis and Disposition been Completed?: Yes Diagnosis: Cervical strain, Headache Disposition: HOME/ ROUTINE Disposition Time: 14:00 Patient Plan: Discharge Patient Problems: Current Active Problems Problem Status Onset Cervical strain Acute Headache Acute Condition: GOOD Discharge Instructions (ExitCare): Cervical Muscle Strain (DC), Headache, Adult (DC) Print Language: PASHTO Additional Instructions: For any change in character or location of headache, any swelling, any visual symptoms, any rash, any nausea or vomiting, any abdominal pain, any vaginal bleeding, any weakness, any dizziness or unsteadiness, any swelling, any persistent or worsening of symptoms, get rechecked. Take tylenol as needed for pain. Recommend neurologist follow-up for any persistent pain or symptoms. Referrals: [facility] [Outside] - Follow up with primary Jonah Lobo MD [Staff Provider] - Follow up with primary Mary Green MD [Medical Doctor] - Follow up with primary Forms: [employer] (Urdu)
== END 2017-12-16 14:45 | disposition home or self-care (01) ==
LOC: ED 12:28
DX: O9A.212 Injury, poisoning and certain other consequences of external causes complicating pregnancy, second trimester (principal); S16.1XXA Strain of muscle, fascia and tendon at neck level, initial encounter; X58.XXXA Exposure to other specified factors, initial encounter; Z3A.26 26 weeks gestation of pregnancy